=== PATIENT | male | born 1995 | race Caucasian/White ===

== ENCOUNTER 2021-03-14 14:55 | Emergency (ER) | payer OTHER ==
[~2021-03-14] VITALS: Ht 172.7 cm; Wt 72.6 kg
[~2021-03-14 14:55] MED LIST: IBUP600 PO; SULTRIDS PO
== END 2021-03-14 16:23 | disposition home or self-care (01) ==
LOC: ER 14:55
DX: S63.501A Unspecified sprain of right wrist, initial encounter (principal); F17.200 Nicotine dependence, unspecified, uncomplicated; V86.56XA Driver of dirt bike or motor/cross bike injured in nontraffic accident, initial encounter; W22.01XA Walked into wall, initial encounter
CPT/HCPCS: 29125; 73110; 99283-25

== ENCOUNTER 2021-08-04 12:03 | Emergency (ER) | payer OTHER ==
[~2021-08-04] VITALS: Ht 172.7 cm; Wt 74.8 kg
[2021-08-04] MEDS ORDERED: BENZ100A PO (13:31)
[2021-08-04] MEDS ORDERED: ONDA4ODT MM (13:31)
== END 2021-08-04 15:08 | disposition home or self-care (01) ==
LOC: ER 12:03
DX: U07.1 COVID-19 (principal); F17.200 Nicotine dependence, unspecified, uncomplicated
CPT/HCPCS: 99282

== ENCOUNTER 2023-06-17 09:22 | Emergency (ER) | payer OTHER ==
[~2023-06-17] VITALS: Ht 172.7 cm; Wt 74.8 kg
[~2023-06-17 09:22] MED LIST changes: +BENZ100A PO; +ONDA4ODT MM
[2023-06-17 09:42] VITALS: BP 137/75
[2023-06-17] MEDS ORDERED: BANOPHEN25 MG PO (09:45)
[2023-06-17] MEDS ORDERED: Pepcid20 MG PO (09:45)
== END 2023-06-17 10:10 | disposition home or self-care (01) ==
LOC: ER 09:22
DX: T63.441A Toxic effect of venom of bees, accidental (unintentional), initial encounter (principal); X58.XXXA Exposure to other specified factors, initial encounter; F17.200 Nicotine dependence, unspecified, uncomplicated; Z79.1 Long term (current) use of non-steroidal anti-inflammatories (NSAID); Z79.2 Long term (current) use of antibiotics; Z79.899 Other long term (current) drug therapy
CPT/HCPCS: 99283; A9270; J1100

== ENCOUNTER 2023-06-26 18:21 | Emergency (ER) | payer OTHER ==
[~2023-06-26] VITALS: Ht 172.7 cm; Wt 77.1 kg
[~2023-06-26 18:21] MED LIST changes: +BANOPHEN25 MG PO; +Pepcid20 MG PO
[2023-06-26 18:35] VITALS: BP 145/72
[2023-06-26] MEDS ORDERED: HYDR1TAB94 PO (20:27)
[2023-06-26] MEDS ORDERED: Cephalexin500 MG PO (20:27)
[2023-06-27] MEDS ORDERED: AMOCLA875 PO (17:29)
[2023-06-30] MEDS ORDERED: IBUP600 PO (15:48)
== END 2023-06-26 20:35 | disposition home or self-care (01) ==
LOC: ER 18:21
DX: M79.5 Residual foreign body in soft tissue (principal); F17.200 Nicotine dependence, unspecified, uncomplicated; Z79.899 Other long term (current) drug therapy
CPT/HCPCS: 73140; 99283-25; A9270

== ENCOUNTER 2023-06-27 11:18 | Emergency (ER) | payer OTHER ==
[~2023-06-27] VITALS: Ht 172.7 cm; Wt 74.8 kg
[~2023-06-27 11:18] MED LIST changes: +Cephalexin500 MG PO; +HYDR1TAB94 PO
[2023-06-27 11:57] VITALS: BP 110/83
[2023-06-27 12:41] LABS: BASOPHILS ABSOLUTE AUTO 0.05 K/mm3 (0.00-0.23); BASOPHILS PERCENT AUTO 1 % (0-2); EOSINOPHILS ABSOLUTE AUTO 0.01 K/mm3 (0.00-0.68); EOSINOPHILS PERCENT AUTO 0 % (0-6); Hematocrit 45.2 % (37.0-53.0); Hemoglobin 15.3 g/dL (13.5-17.5); IMMATURE GRAN ABSOLUTE AUTO 0.02 K/mm3 (0.00-0.10); IMMATURE GRAN PERCENT AUTO 0 % (0-1); LYMPHOCYTES ABSOLUTE AUTO 2.65 K/mm3 (0.84-5.20); LYMPHOCYTES PERCENT AUTO 26 % (21-46); MONOCYTES ABSOLUTE AUTO 1.06 K/mm3 (0.16-1.47); MONOCYTES PERCENT AUTO 10 % (4-13); Mean Corpuscular HGB 30.5 pg (26.0-34.0); Mean Corpuscular HGB Conc 33.8 g/dL (31.5-36.5); Mean Corpuscular Volume 90 fL (80-100); Mean Platelet Volume 10.8 fL (9.1-12.4); NEUTROPHILS ABSOLUTE AUTO 6.41 K/mm3 (1.96-9.15); NEUTROPHILS PERCENT AUTO 63 % (41-73); Platelet Count 223 K/mm3 (150-400); RDW Coefficient Variation 13.2 % (11.7-14.2); Red Blood Cell Count 5.01 M/mm3 (4.30-5.90)
[2023-06-27 12:58] LABS: Albumin, Blood 4.2 g/dL (3.4-5.0); Albumin/Globulin Ratio 1.1 (0.8-1.8); Bilirubin, Total 0.4 mg/dL (0.1-1.0); Bun/Creatinine Ratio 11.5 (12.0-20.0); C-REACTIVE PROTEIN, EXT RANGE 0.977 mg/dL (0.000-0.300); Calcium, Blood 8.9 mg/dL (8.5-10.1); Creatinine, Blood 0.78 mg/dL (0.60-1.20); Globulin, Blood 3.9 g/dL (2.2-4.0); Potassium, Blood 4.3 mmol/L (3.5-5.5); Total Protein, Blood 8.1 g/dL (6.4-8.2)
--- NOTE | 2023-06-27 13:22 | NUR ---
Receivied report from Security regarding non-compliance with [employer] policy. Patient smoked after receiving education about the policy. 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 Per policy, any non-compliance must result in provider notification and 1:1 direct observation until patient is discharged.
[2023-06-27] MEDS ORDERED: AMOCLA875 PO ×2 (17:29)
== END 2023-06-27 18:00 | disposition home or self-care (01) ==
LOC: ER 11:18
PROVIDERS: Student in an Organized Health Care Education/Training Program
DX: L08.9 Local infection of the skin and subcutaneous tissue, unspecified (principal); R11.2 Nausea with vomiting, unspecified; T36.1X5A Adverse effect of cephalosporins and other beta-lactam antibiotics, initial encounter; M79.645 Pain in left finger(s); F17.200 Nicotine dependence, unspecified, uncomplicated
CPT/HCPCS: 80053; 83605; 85025; 85651; 86140; 96365; 96375; 99283-25; J0295; J0690; J1200

== ENCOUNTER 2023-06-29 14:26 | Observation (INO) | payer OTHER ==
[~2023-06-29] VITALS: Ht 172.7 cm; Wt 74.8 kg
[~2023-06-29 14:26] MED LIST changes: +AMOCLA875 PO
[2023-06-29 15:53] LABS: BASOPHILS ABSOLUTE AUTO 0.05 K/mm3 (0.00-0.23); BASOPHILS PERCENT AUTO 1 % (0-2); EOSINOPHILS ABSOLUTE AUTO 0.04 K/mm3 (0.00-0.68); EOSINOPHILS PERCENT AUTO 0 % (0-6); Hematocrit 45.3 % (37.0-53.0); Hemoglobin 15.3 g/dL (13.5-17.5); IMMATURE GRAN ABSOLUTE AUTO 0.02 K/mm3 (0.00-0.10); IMMATURE GRAN PERCENT AUTO 0 % (0-1); LYMPHOCYTES ABSOLUTE AUTO 2.52 K/mm3 (0.84-5.20); LYMPHOCYTES PERCENT AUTO 26 % (21-46); MONOCYTES ABSOLUTE AUTO 0.73 K/mm3 (0.16-1.47); MONOCYTES PERCENT AUTO 8 % (4-13); Mean Corpuscular HGB 30.7 pg (26.0-34.0); Mean Corpuscular HGB Conc 33.8 g/dL (31.5-36.5); Mean Corpuscular Volume 91 fL (80-100); Mean Platelet Volume 10.9 fL (9.1-12.4); NEUTROPHILS ABSOLUTE AUTO 6.43 K/mm3 (1.96-9.15); NEUTROPHILS PERCENT AUTO 66 % (41-73); Platelet Count 236 K/mm3 (150-400); RDW Coefficient Variation 13.1 % (11.7-14.2); RDW Standard Deviation 43.6 fL (35.1-46.3); Red Blood Cell Count 4.98 M/mm3 (4.30-5.90); White Blood Cell Count 9.79 K/mm3 (4.00-11.30)
[2023-06-29 16:15] LABS: C-REACTIVE PROTEIN, EXT RANGE 1.05 mg/dL (0.000-0.300)
[2023-06-29 16:23] LABS: Bun/Creatinine Ratio 11.2 (12.0-20.0); Calcium, Blood 9.3 mg/dL (8.5-10.1); Creatinine, Blood 0.98 mg/dL (0.60-1.20)
[2023-06-29 17:56] VITALS: BP 142/99
--- NOTE | 2023-06-29 19:27 | NUR ---
ADMISSION: REPORT RECEIVED FROM ED RN. PT TO UNIT AT 1750. PT A/O, VSS. ED RN REPORT THAT PT STARTED ITCHING AND HAD A RASH AT BACK WHEN THE VANCO INFUSING. ED RN STOPPED INFUSION AND BY THE TIME PT CAME TO UNIT RASH AT BACK WAS GONE AND PT HAD NO ITCH. DR. DOMINGUEZ NOTIFIED OF THIS AND VANCO DC'D. PT DENIES PAIN AT R SECOND FINGER. PT ABLE TO MOVE FINGER AND REPORTS FULL SENSATION. PLAN IS NPO AT 0000, PT AWARE. REPORT PASSED TO NOC MAG [facility].
[2023-06-29 19:37] VITALS: BP 124/78
[2023-06-30 03:26] VITALS: BP 114/56
--- NOTE | 2023-06-30 04:43 | NUR ---
ALERT AND COOPERATIVE. SLEPT WELL AFTER 2400. RESPS UNLABORED. PINK WARM & DRY TO TOUCH. NPO AT 2400. ABD SOFT. VOIDING WELL. PIV IN SITU. LEFT INDEX FINGER UNCHANGED, NO C/O DISCOMFORT. PREOP CLEANSING COMPLETED.
[2023-06-30 05:09] LABS: Hematocrit 42.9 % (37.0-53.0); Hemoglobin 14.5 g/dL (13.5-17.5); Mean Corpuscular HGB 30.5 pg (26.0-34.0); Mean Corpuscular HGB Conc 33.8 g/dL (31.5-36.5); Mean Corpuscular Volume 90 fL (80-100); Mean Platelet Volume 10.6 fL (9.1-12.4); Platelet Count 245 K/mm3 (150-400); RDW Coefficient Variation 13.1 % (11.7-14.2); RDW Standard Deviation 43.1 fL (35.1-46.3); Red Blood Cell Count 4.75 M/mm3 (4.30-5.90); White Blood Cell Count 8.06 K/mm3 (4.00-11.30)
[2023-06-30 05:28] LABS: Bun/Creatinine Ratio 13.7 (12.0-20.0); Calcium, Blood 8.7 mg/dL (8.5-10.1); Creatinine, Blood 0.81 mg/dL (0.60-1.20); Potassium, Blood 4.5 mmol/L (3.5-5.5)
[2023-06-30 07:33] VITALS: BP 136/77
[2023-06-30 14:36] VITALS: BP 108/84
--- NOTE | 2023-06-30 15:18 | NUR ---
DR HALE IN ROOM TO DO BEDSIDE I&D, TIME OUT TAKEN TO GO OVER SUPPLIES AND PROCEDURE. THIS RN TO ASSIST, PATIENT WAS INFORMED AND CONSENTED TO PROCEDURE.
[2023-06-30] MEDS ORDERED: IBUP600 PO ×2 (15:48)
--- NOTE | 2023-06-30 16:18 | NUR ---
PATIENT DICHARGED AT 1600. RAC IV REMOVED. DISCHARGE TEACHING PROVIDED AND FOLLOW UP INTRUCTIONS WERE GIVEN TO PATIENT. PATIENT GRABBED ALL OF HIS BELONGONGS AND AMBULATED OUT OF ROOM. 1
== END 2023-06-30 16:11 | disposition home or self-care (01) ==
LOC: ER 14:26 → SURS 14:27
PROVIDERS: Student in an Organized Health Care Education/Training Program; ADMIT Internal Medicine
PROC: 0J9 Subcutaneous Tissue and Fascia, Drainage (ICD-10-PCS; principal; 2023-06-29)
DX: L02.512 Cutaneous abscess of left hand (principal); F17.210 Nicotine dependence, cigarettes, uncomplicated; Z88.6 Allergy status to analgesic agent
CPT/HCPCS: 36415; 80048; 85025; 85027; 85651; 86140; 87070; 87075; 87077; 87147; 87186; 87205; 96365; 96366; 96367; 96375; 96376; 99284-25; A9270; G0378; J0295; J1885; J3370; J7050

== ENCOUNTER 2025-01-08 09:34 | Emergency (ER) | payer OTHER ==
[~2025-01-08] VITALS: Ht 172.7 cm; Wt 71.0 kg
[2025-01-08 10:05] VITALS: BP 146/88
[2025-01-08] MEDS ORDERED: CLIN150 PO (10:16)
== END 2025-01-08 10:19 | disposition home or self-care (01) ==
LOC: ER 09:34
DX: K04.7 Periapical abscess without sinus (principal); K02.9 Dental caries, unspecified; F17.200 Nicotine dependence, unspecified, uncomplicated; Z88.0 Allergy status to penicillin; Z88.1 Allergy status to other antibiotic agents
CPT/HCPCS: 99282

== ENCOUNTER 2025-03-31 18:20 | Emergency (ER) | payer OTHER ==
[~2025-03-31] VITALS: Ht 172.7 cm; Wt 74.8 kg
[~2025-03-31 18:20] MED LIST changes: +CLIN150 PO
[2025-03-31] MEDS ORDERED: HYDROcodone 5-APAP 325 TAB PO ONE (18:50)
[2025-03-31 19:03] LABS: BASOPHILS ABSOLUTE AUTO 0.06 K/mm3 (0.00-0.23); BASOPHILS PERCENT AUTO 0 % (0-2); EOSINOPHILS ABSOLUTE AUTO 0.11 K/mm3 (0.00-0.68); EOSINOPHILS PERCENT AUTO 1 % (0-6); Hematocrit 39.1 % (37.0-53.0); Hemoglobin 13.0 g/dL (13.5-17.5); IMMATURE GRAN ABSOLUTE AUTO 0.05 K/mm3 (0.00-0.10); IMMATURE GRAN PERCENT AUTO 0 % (0-1); LYMPHOCYTES ABSOLUTE AUTO 2.25 K/mm3 (0.84-5.20); LYMPHOCYTES PERCENT AUTO 15 % (21-46); MONOCYTES ABSOLUTE AUTO 1.86 K/mm3 (0.16-1.47); MONOCYTES PERCENT AUTO 12 % (4-13); Mean Corpuscular HGB Conc 33.2 g/dL (31.5-36.5); Mean Corpuscular Volume 91 fL (80-100); NEUTROPHILS ABSOLUTE AUTO 10.76 K/mm3 (1.96-9.15); NEUTROPHILS PERCENT AUTO 71 % (41-73); NRBC ABSOLUTE 0.00 K/mm3 (0.00-0.02); NRBC Auto 0.0 /100 WBC (0.0-0.2); Platelet Count 228 K/mm3 (150-400); RDW Coefficient Variation 12.6 % (11.7-14.2); RDW Standard Deviation 42.4 fL (35.1-46.3)
[2025-03-31 19:28] LABS: Alanine Aminotransfer (ALT/SGP 28.0 U/L (12-78); Albumin, Blood 3.9 g/dL (3.4-5.0); Albumin/Globulin Ratio 1.1 (0.8-1.8); Anion Gap 7.0 mmol/L (3-11); Aspartate Aminotrans (AST/SGOT 45.0 U/L (12-37); Bilirubin, Total 0.5 mg/dL (0.1-1.0); Blood Urea Nitrogen 9.0 mg/dL (8-24); CO2, Blood 28.0 mmol/L (21-32); Calcium, Blood 8.9 mg/dL (8.5-10.1); Chloride, Blood 107.0 mmol/L (98-108); Creatinine, Blood 0.89 mg/dL (0.60-1.20); Globulin, Blood 3.4 g/dL (2.2-4.0); Glucose, Blood 91.0 mg/dL (70-99); Potassium, Blood 3.8 mmol/L (3.5-5.5); Sodium, Blood 138.0 mmol/L (136-145); Total Protein, Blood 7.3 g/dL (6.4-8.2)
[2025-03-31 20:27] VITALS: BP 117/76
== END 2025-03-31 20:27 | disposition home or self-care (01) ==
LOC: ER 18:20
PROVIDERS: Student in an Organized Health Care Education/Training Program
DX: S30.0XXA Contusion of lower back and pelvis, initial encounter (principal); S60.212A Contusion of left wrist, initial encounter; S80.01XA Contusion of right knee, initial encounter; F17.200 Nicotine dependence, unspecified, uncomplicated; Z88.0 Allergy status to penicillin; Z88.1 Allergy status to other antibiotic agents; V86.56XA Driver of dirt bike or motor/cross bike injured in nontraffic accident, initial encounter
CPT/HCPCS: 71046; 73110; 74177; 80053; 83690; 85025; 99284-25; A9270; Q9967